=== PATIENT | male | born 1990 | race African-American/Black ===

== ENCOUNTER 2017-12-30 06:52 | Emergency (ER) | payer SELFPAY ==
[~2017-12-30] VITALS: Ht 190.5 cm; Wt 140.0 kg
[2017-12-30 06:55] VITALS: BP 166/78; PULSE 106; RESP 20; TEMP 100.8; O2SAT 97
--- NOTE | 2017-12-30 07:12 | PD ---
HPI Chief Complaint: Cold / Flu Symptoms Time Seen by Provider: 07:10 Travel History International Travel<30 days: No Contact w/Intl Traveler<30days: No Traveled to known affect area: No History of Present Illness HPI 27-year-old -[place] male presents emergency department with four-day history of upper respiratory symptoms with increasing sinus congestion, headache , sore throat, postnasal drip, cough which is worse at night. He is a generalized body aches as well. Patient denies chest pain or significant shortness of breath or wheeze. He has no nausea or vomiting or diarrhea. The patient has no known drug allergies. [facility] Social History Alcohol Use: Yes Tobacco Use: No Substance Use: No Allergies-Medications Reported Meds & Prescriptions Reported Meds & Active Scripts Active Flonase Nasal [place] (Fluticasone Nasal [place]) 50 Mcg/Act [place] 100 Mcg EACH NARE BID Amoxicillin 875 Mg Tab 875 Mg PO BID 10 Days Review of Systems Except as stated in HPI: all other systems reviewed are Neg General / Constitutional: Positive: Fever, Chills Eyes: No: Visual changes HENT: Positive: Headaches, Sore Throat, Rhinitis, Rhinorrhea, Congestion, No: Vertigo, Lightheadedness, Nosebleed, Neck Stiffness, Neck Pain, Dental Difficulties, Earache Cardiovascular: No: Chest Pain or Discomfort Respiratory: Positive: Cough, No: Shortness of Breath, Wheezing Gastrointestinal: No: Abdominal Pain Genitourinary: No: Dysuria Musculoskeletal: Positive: Myalgias, No: Pain Skin: No Rash Neurologic: No: Weakness Psychiatric: No: Depression Endocrine: No: Polydipsia Hematologic/Lymphatic: No: Easy Bruising Physical Exam Narrative GENERAL: Patient appears in no acute distress. SKIN: Warm and dry. HEAD: Atraumatic. Normocephalic. EYES: Pupils equal and round. No scleral icterus. No injection or drainage. ENT: No nasal bleeding or discharge. Mucous membranes pink and moist. TMs are dull bilaterally but no injection. Patient has moderate sinus tenderness in both frontal and maxillary sinuses. Posterior pharynx is somewhat erythematous with cobblestoning noted as well as post nasal drip. NECK: Trachea midline. Supple and nontender. No significant lymphadenopathy. CARDIOVASCULAR: Regular rate and rhythm. RESPIRATORY: No accessory muscle use. Clear to auscultation. Breath sounds equal bilaterally. MUSCULOSKELETAL: Extremities without clubbing, cyanosis, or edema. No obvious deformities. NEUROLOGICAL: Awake and alert. No obvious cranial nerve deficits. Motor grossly within normal limits. Five out of 5 muscle strength in the arms and legs. Normal speech. PSYCHIATRIC: Appropriate mood and affect; insight and judgment normal. Data Data Last Documented VS Vital Signs Date Time Temp Pulse Resp B/P (MAP) Pulse Ox O2 Delivery O2 Flow Rate FiO2 12/30/17 06:55 100.8 106 20 166/78 (107) 97 MDM Medical Decision Making Medical Screen Exam Complete: Yes Emergency Medical Condition: Yes Differential Diagnosis Febrile illness. Sinusitis. Postnasal drip. Cough Narrative Course Patient is medically stable time exam. Patient is given amoxicillin 875 twice daily 10 days. Patient is given Flonase nasal spray 2 sprays each nostril daily. Patient should take Tylenol and ibuprofen as needed for fever and muscle aches. Patient should rest and push fluids and follow-up if symptoms do not improve. Diagnosis Primary Impression: Sinusitis, acute Qualified Codes: J01.40 - Acute pansinusitis, unspecified Referrals: Primary Care Physician Patient Instructions: General Instructions, Sinusitis (ED) Additional Instructions: Patient is given amoxicillin 875 twice daily 10 days. Patient is given Flonase nasal spray 2 sprays each nostril daily. Patient should take Tylenol and ibuprofen as needed for fever and muscle aches. Patient should rest and push fluids and follow-up if symptoms do not improve. Med/Other Pt SpecificInfo: Prescription(s) given Scripts Fluticasone Nasal [place] (Flonase Nasal [place]) 50 Mcg/Act [place] 100 MCG EACH NARE BID for Allergies, #1 BOTTLE 0 Refills Prov: Jr Phillips MD 12/30/17 Amoxicillin (Amoxicillin) 875 Mg Tab 875 MG PO BID for Infection for 10 Days, #20 TAB 0 Refills Prov: Jr Phillips MD 12/30/17 Disposition: DISCHARGE HOME Condition: Stable Timothy Schrader Dec 30, 2017 07:12
[2017-12-30] MEDS ORDERED: AMOX875T PO (07:16)
[2017-12-30] MEDS ORDERED: FLUT1SPR5 EACH NARE (07:17)
== END 2017-12-30 07:26 | disposition home or self-care (01) ==
LOC: NEPD 06:52
DX: J01.40 Acute pansinusitis, unspecified (principal)
CPT/HCPCS: 99283